=== PATIENT | male | born 1960 | race Caucasian/White ===

== ENCOUNTER 2022-11-07 18:26 | Emergency (ER) | payer MEDICARE ==
[2022-11-07] VITALS (10 sets, daily range): BP systolic 100–164; BP diastolic 49–144
[~2022-11-07] VITALS: Ht 177.8 cm; Wt 122.0 kg
[~2022-11-07 18:26] MED LIST: CIPRO500 MG PO; LORTAB 5/3255 MG PO; MEDDOSEPAK OR; MORPHINE SUL60 MG OR; PENICILLN VK500 M1 OR; ULTRAM50 MG OR; UNKNOWN B/P MED; VALIUM10 MG OR; [UNRECOGNIZED DRUG - REMARK]
[2022-11-07] MEDS ORDERED: METFORMIN HCL1000 MG PO (19:47)
[2022-11-07 20:36] LABS: BASO% 0.1 % (0-3); EOS% 0.4 % (0-8); HEMATOCRIT 37.6 % (39.0-50.0); HEMOGLOBIN 12.1 g/dl (14.0-18.0); IMMATURE GRANULOCYTES 0.3 % (0.0-5.0); LYMPH% 8.8 % (15-41); MEAN CELL VOLUME 85.1 fL CALC (80.0-100.0); MEAN CORPUSCULAR HGB 27.4 pG CALC (26.0-32.0); MEAN CORPUSCULAR HGB CONC 32.2 g/dL CAL (32.0-36.0); MONO% 8.4 % (2-13); NEUT# 13.01 thou/uL (1.82-7.42); RED BLOOD COUNT 4.42 mill/uL (4.70-6.10); RED CELL DISTRI WIDTH 15.4 % (11.5-15.5)
[2022-11-07 20:48] LABS: ALBUMIN 4.1 g/dL (3.2-5.0); ALKALINE PHOSPHATASE 100 u/l (38-126); ANION GAP 12 (6-22 (CALC)); BILIRUBIN, TOTAL 1.5 mg/dL (0.2-1.3); BUN 26 mg/dL (8-23); BUN/CREATININE RATIO 25 (12-20 (CALC)); CARBON DIOXIDE 28 mmol/l (22-30); CHLORIDE 94 mmol/l (95-108); CREATININE 1.1 mg/dL (0.7-1.3); GFR FOR AFR.AMER. > 60 ML/MIN (>=60 (CALC)); GFR OTHER RACES > 60 ML/MIN (>=60 (CALC)); POTASSIUM 4.5 mmol/l (3.5-5.1); SGOT/AST 27 u/l (19-48); SODIUM 129 mmol/l (137-146); TOTAL PROTEIN 8.5 g/dL (6.3-8.2)
[2022-11-07 20:58] LABS: D-DIMER 3.89 mg/L (0.19-0.60)
[2022-11-07 21:04] LABS: ACT PARTIAL THROMBO TIME 28.8 SECONDS (20.0-32.5); INTERNATIONAL NORMALIZED RATIO 1.1 RATIO (0.7-1.3); PROTHROMBIN TIME 10.7 SECONDS (9.0-12.5)
[2022-11-07] MEDS ORDERED: VIBRAMYCIN100 M2 PO (21:42)
== END 2022-11-07 22:18 | disposition home or self-care (01) ==
LOC: ED 18:26
PROVIDERS: Family Medicine
DX: L03.115 Cellulitis of right lower limb (principal); S80.811A Abrasion, right lower leg, initial encounter; I10 Essential (primary) hypertension; E11.9 Type 2 diabetes mellitus without complications; X58.XXXA Exposure to other specified factors, initial encounter; Z96.651 Presence of right artificial knee joint; Z79.84 Long term (current) use of oral hypoglycemic drugs

== ENCOUNTER 2022-12-19 16:10 | Emergency (ER) | payer MEDICARE ==
[~2022-12-19] VITALS: Ht 177.8 cm; Wt 118.0 kg
[~2022-12-19 16:10] MED LIST changes: +METFORMIN HCL1000 MG PO; +VIBRAMYCIN100 M2 PO
[2022-12-19 16:21] VITALS: BP 132/85
[2022-12-19] MEDS ORDERED: OMNI-PAC300 MG PO (17:35)
[2022-12-19 17:57] VITALS: BP 132/85
== END 2022-12-19 18:03 | disposition home or self-care (01) ==
LOC: ED 16:10
DX: L03.114 Cellulitis of left upper limb (principal); I10 Essential (primary) hypertension; E11.9 Type 2 diabetes mellitus without complications; Z79.84 Long term (current) use of oral hypoglycemic drugs